=== PATIENT | female | born 1990 | race Caucasian/White ===

== ENCOUNTER 2020-07-24 18:52 | Emergency (ER) | payer MEDICAID ==
[~2020-07-24] VITALS: Ht 167.6 cm; Wt 75.0 kg
[2020-07-24 19:35] LABS: HCG UR SG 1.034 (1.003-1.030)
[2020-07-24 19:36] LABS: MICROSCOPIC INDICATED
[2020-07-24 20:29] LABS: BASOPHILS % (AUTO) 1 % (0-1); EOSINOPHILS % (AUTO) 2 % (1-7); LYMPHOCYTES % (AUTO) 33 % (22-44); MEAN CORPUSCULAR HEMOGLOBIN 32.2 pg (27.0-34.8); MEAN CORPUSCULAR HGB CONC 33.9 g/dL (32.4-35.8); MEAN PLATELET VOLUME 9.3 fL (7.4-10.4); MONOCYTES % (AUTO) 15 % (2-9); NEUTROPHILS % (AUTO) 49 % (42-75); PLATELET COUNT 154 x10^3/uL (130-400); RED BLOOD COUNT 4.42 x10^6/uL (3.82-5.3); RED CELL DISTRIBUTION WIDTH 12.3 % (9.6-15.2)
[2020-07-24 20:30] LABS: MD NO
[2020-07-24 20:39] LABS: ALANINE AMINOTRANSFERASE 23 U/L (12-78); ALBUMIN 3.6 g/dL (3.4-5.0); ANION GAP 2 mmol/L (5-15); CALCIUM 8.2 mg/dL (8.5-10.1); CHLORIDE 104 mmol/L (98-107); CREATININE 0.95 mg/dL (0.55-1.02)
[2020-07-24 20:41] LABS: ALKALINE PHOSPHATASE 48 U/L (45-117); BILIRUBIN,TOTAL 0.2 mg/dL (0.2-1.0)
--- NOTE | 2020-07-24 20:51 | NUR ---
PT CAME IN [place] PAINFUL URINATION X 5 DAYS. [facility] TO [facility] AND WAS GIVEN FLAGYL. UA SENT. PROVIDER IS BEDSIDE FOR ASSESSMENT
[2020-07-24 21:09] LABS: WET PREP WBCS FEW (FEW)
[2020-07-24 21:10] LABS: CLUE CELLS NONE SEEN (NONE SEEN)
[2020-07-24 21:16] VITALS: BP 116/82
[2020-07-24] MEDS ORDERED: CEFTRIAXONE 1,000 MG ONE (21:40)
[2020-07-24] MEDS ORDERED: DOXYCYCLINE 100MG TABLET ONE (21:40)
[2020-07-24] MEDS ORDERED: CEFTRIAXONE 1,000 MG IM ONE (22:00)
[2020-07-24] MEDS ORDERED: DOXYCYCLINE 100MG TABLET PO ONE (22:00)
== END 2020-07-24 21:52 | disposition home or self-care (01) ==
LOC: ED 19:22
DX: N39.0 Urinary tract infection, site not specified (principal); N89.8 Other specified noninflammatory disorders of vagina; R30.0 Dysuria
CPT/HCPCS: 36415; 80053; 81001; 81025; 85025; 87086; 87210; 87491; 87591; 87808; 96372; 99284; J0696